=== PATIENT | male | born 1980 | race Caucasian/White ===

== ENCOUNTER 2016-05-04 11:56 | Emergency (ER) | payer SELFPAY ==
[2016-05-04 11:57] VITALS: BP 127/71; PULSE 80; RESP 12; TEMP 98; O2SAT 96
== END 2016-05-04 12:45 | disposition left against medical advice (07) ==
LOC: NED 11:56
DX: Z03.89 Encounter for observation for other suspected diseases and conditions ruled out (principal)
CPT/HCPCS: 99281